=== PATIENT | female | born 1985 | race Caucasian/White ===

== ENCOUNTER 2024-02-04 07:05 | Emergency (ER) | payer SELFPAY ==
[2024-02-04 07:10] VITALS: BP 131/85; PULSE 81; RESP 16; TEMP 36.2; O2SAT 98; BMI 26.5
--- NOTE | 2024-02-04 07:28 | ED_ITS ---
HPI - Skin/Abscess/Foreign Bdy General Chief complaint: Skin/Abscess/Foreign Body Stated complaint: rash Time Seen by Provider: 02/04/24 07:25 Source: patient Mode of arrival: ambulatory Limitations: no limitations History of Present Illness HPI narrative: Patient is a 39-year-old female who presents emergency department for evaluation of a rash. She states she has been experiencing a pruritic vesicular rash to her bilateral forearms over the past month that has been progressing. She has not put on any creams or tried any [id number]-noo-evabuaz medications. She is concerned that pin worms are coming out of her hair follicles resulting in this rash. She does admit to smoking meth, she states that she recently moved here from [place] 3 days ago, and reports that she stopped using meth 1 week ago. She came here to live with a family member and wants to ?get clean?. She denies any fevers, chills, additional skin rashes or lesions, nausea, vomiting, abdominal pain, diarrhea, constipation, no anal pruritus Related Data Previous Rx's ?Medication ?Instructions ?Recorded prednisone 10 mg tablet 10 mg PO DIRECTED #31 tabs 02/04/24 hydroxyzine HCl 25 mg tablet 25 mg PO TID PRN nausea and 02/05/24 vomiting, anxiety #20 tabs Allergies Allergy/AdvReac Type Severity Reaction Status Date / Time prednisone AdvReac Agitated Verified 02/04/24 09:54 Review of Systems 2 Review of Systems: Yes all other systems are reviewed and are negative [facility] Past Medical History Attestation statement: The following information was validated with the patient. Source: old records reviewed Social History Social History Advance Directives: No Advance Directives Information Provided: No Do you have a plan to hurt others: No Plan Physical Exam 2 Vital Signs: Vital Signs: Last Vital Signs Temp 98.7 F 02/05/24 12:30 Pulse 87 02/05/24 12:30 Resp 16 02/05/24 12:30 BP 104/61 02/05/24 12:30 Pulse Ox 98 02/05/24 12:30 O2 Del Method Room Air 02/05/24 12:30 BMI result Body Mass Index 26.5 Appearance: Alert.?Oriented to person, place and time. No acute distress.?Normal affect. Neck: Normal inspection.? Neck supple.?? CVS: Heart sounds normal. Normal heart rate and rhythm.? Pulses normal.?? Respiratory: No respiratory distress.? Lung sounds clear to auscultation bilaterally?? Abdomen: Soft and non-tender. Normoactive bowel sounds. Skin: Skin warm and dry.? Normal skin color.? Extremities: No lower extremity edema.? Neuro: Moves all extremities spontaneously. Sensation intact bilaterally. CN II- XII intact. No focal neuro deficits. Ambulates with normal steady gait. Course Reevaluation(s) Reevaluation #1: Nursing staff presented to bedside to provide patient was discharge instructions. At this time she is endorsing suicidal ideations, not offering specific plan. She states ?I just want to ?. Will obtain serum labs for medical clearance, toxicology testing, and refer to care team Time: 08:22 Medications Administered Discontinued Medications Generic Name Dose Route Start Last Admin Trade Name Freq PRN Reason Stop Dose Admin Hydroxyzine HCl 50 mg 02/04/24 09:12 02/04/24 09:30 Hydroxyzine Hcl 50 Mg Tablet PO 02/04/24 09:13 50 mg ONCE ONE Administration Hydroxyzine HCl 50 mg 02/04/24 17:53 02/04/24 17:59 Hydroxyzine Hcl 50 Mg Tablet PO 02/04/24 17:54 50 mg ONCE ONE Administration Hydroxyzine HCl 50 mg 02/05/24 03:54 02/05/24 03:57 Hydroxyzine Hcl 50 Mg Tablet PO 02/05/24 03:55 50 mg ONCE ONE Administration Hydroxyzine HCl 50 mg 02/05/24 09:53 02/05/24 10:44 Hydroxyzine Hcl 50 Mg Tablet PO 50 mg QID PRN Administration Agitation, anxiety, pruritus Lorazepam 2 mg 02/04/24 18:02 02/04/24 18:05 Lorazepam 1 Mg Tablet PO 02/04/24 18:03 2 mg ONCE ONE Administration Lorazepam 1 mg 02/05/24 09:53 02/05/24 10:44 Lorazepam 1 Mg Tablet PO 1 mg Q6H PRN Administration Agitation, anxiety Prednisone 40 mg 02/04/24 09:00 02/05/24 09:38 Prednisone 10 Mg Tablet PO 02/16/24 08:59 40 mg DAILY DALE Administration Taper Prednisone 40 mg 02/04/24 17:53 02/04/24 18:06 Prednisone 20 Mg Tablet PO 02/04/24 17:54 40 mg ONCE ONE Administration Medical Decision Making Medical Decision Making [facility] Narrative: Patient is a 39-year-old female past medical history of methamphetamine abuse presenting to emergency department for evaluation of a pruritic vesicular rash to her bilateral forearms as per physical exam portion of this note. 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 Does not appear consistent with folliculitis, low suspicion for a staph infection, no erosions, no recent medications, does not appear consistent with SJS, TENS, no mucosal involvement. Start on prednisone taper and discussed strict hygiene precautions Differential Diagnosis Differential Diagnoses: The differential diagnosis associated with the presentation includes (See narrative above) Admission/Observation Consideration of admission/observation: Escalation of care including admission/observation considered Patient is being observed in the Emergency Department for depression and anxiety. Observation time was started at 08:27 on 01/27/2024.?The patient is currently stable and non-toxic appearing. Observation is being initiated in the Emergency Department to allow time to help differentiate if the patient's depression and anxiety is due to Substance Induced Mood Disorder and Anxiety versus Major Depressive Disorder, Bipolar Keyla, Bipolar Depression, and Schizophrenia. The patient will receive frequent psychiatric assessments from the provider as well as from nursing staff. The patient will also be monitored for the need of PRN agitation medications such as Haldol, Ativan, and Benadryl. 02/05/2024 Capo Monterroso'dimitry continue physician observation 09:51 Patient has been in the emergency department for 26 hours. Patient has been seen by the care team. There were no reported incidents on the patient by the overnight staff. The patient is complaining pruritus secondary to her rash. The patient was taking present and there was a concerned that she may become more agitated secondary to this patient. I did order Ativan 1 mg Q 6 hours as needed for agitation and anxiety. I also ordered hydroxyzine 50 mg orally every 6 hours as needed for pruritus. Patient will remain in the emergency department Behavioral Health Unit until disposition can be determined or until patient's symptoms improve over time. 12:17 End physician observation Patient was seen by the care team in the patient is denying suicidal or homicidal ideation. Patient has urine tox screen was positive for amphetamines and for THC and the care team felt that the patient's symptoms were consistent with drug-induced psychosis. The patient came to this area on a bus from [place]. The patient's aunt was contacted by the care team and the patient can stay with the aunt. The aunt is also willing to pay for the patient's medications. Therefore the patient will be discharged. Patient was prescribed a course of prednisone for contact dermatitis. I also prescribed hydroxyzine 25 mg, 1 pill 3 times a day as needed for pruritus and itchiness. Observation care revealed the the patient does not meet medical necessity for hospitalization. Exam at time of disposition revealed the patient was awake, alert , oriented to person place, was not in any distress. ? Final disposition discussed with the patient by the care team and the patient did verbalized understanding and agreement. Patient started observation time on 02/04/2024 at 08:26 hours open speech Patient completed observation care on 02/05/2024 at 12:20 hours Total time spent in observation care was 27 hours and 54 minute Consult Healthcare Provider Management of the patient was discussed with: Behavioral Health Provider Lab Data MDM Lab Attestation statement: I reviewed the patient's lab results. CBC is without leukocytosis anemia or thrombocytopenia. No electrolyte derangement. No RUBINA. LFTs unremarkable. Urinalysis without evidence of infection. Toxicology positive for amphetamine and marijuana. 02/04/24 10:18 02/04/24 10:18 Labs: Lab Results 02/04/24 02/04/24 Range/Units 10:18 11:46 WBC 8.3 (4.8-10.8) X10*3/uL RBC 4.48 (4.20-5.50) X10*6/uL Hgb 14.6 (12.0-16.0) g/dl Hct 41.3 (37.0-47.0) % MCV 92.2 (80.0-98.0) fL MCH 32.6 (27.0-33.0) pg MCHC 35.4 H (31.0-35.0) g/dl RDW 12.2 (11.0-16.0) % Plt Count 302 (160-400) X10*3/uL MPV 9.8 (9.4-12.3) fL Immature Gran % (Auto) 0.4 (0.0-0.4) % Neut % (Auto) 68.0 (45-73) % Lymph % (Auto) 19.7 L (20-40) % [place] % (Auto) 4.8 (2-11) % Eos % (Auto) 6.4 H (0-4) % Baso % (Auto) 0.7 (0-2) % Lymph # (Auto) 1.6 (1.2-4.9) X10*3/uL [place] # (Auto) 0.4 (0.1-1.2) X10*3/uL Eos # (Auto) 0.5 H (0.0-0.4) X10*3/uL Baso # (Auto) 0.1 (0.0-0.2) X10*3/uL Abs Immat Gran (auto) 0.03 (0.00-0.03) X10*3/uL Absolute Neuts (auto) 5.7 (2.0-8.3) x10*3/uL Absolute Nucleated RBC 0.000 (0.0-0.012) X10*3/uL Nucleated RBC % (auto) 0.0 (0.0-0.2) /100WBC Sodium 140 (135-145) mmol/L Potassium 3.9 (3.3-5.1) mmol/L Chloride 110 H (96-108) mmol/L Carbon Dioxide 23 (22-29) mmol/L Anion Gap 11 L (12-20) BUN 11 (9-16) mg/dL Creatinine 0.74 (0.5-1.4) mg/dL Estim Creat Clear Calc 90.8 Estimated GFR > 60 Random Glucose 98 (60-115) mg/dL Calcium 9.1 (8.4-10.2) mg/dL Total Bilirubin 0.6 (0.0-1.0) mg/dL AST 14 (5-31) U/L ALT 10 (0-31) U/L Alkaline Phosphatase 69 (39-117) U/L Total Protein 6.0 L (6.5-8.0) g/dL Albumin 3.9 (3.5-5.0) g/dL Urine Color Yellow Urine Appearance Clear Urine pH 6.5 (5.0-9.0) Ur Specific [place] 1.020 (1.005-1.025) Urine Protein Negative (Neg-Trace) mg/dL Urine Glucose (UA) Negative (Negative) mg/dL Urine Ketones Trace (Negative) mg/dL Urine Blood Negative (Negative) Urine Nitrite Negative (Negative) Ur Leukocyte Esterase Negative (Negative) Urine Opiates Screen Not Detected (Not Detect) Ur Buprenorphine Scrn Not Detected (Not Detect) ng/mL Ur Oxycodone Screen Not Detected (Not Detect) ng/mL Urine Methadone Screen Not Detected (Not Detect) ng/mL Urine Fentanyl Screen Not Detected (Not Detect) Ur Barbiturates Screen Not Detected (Not Detect) Ur Phencyclidine Scrn Not Detected (Not Detect) Ur Amphetamines Screen POSITIVE H (Not Detect) U Benzodiazepines Scrn Not Detected (Not Detect) Urine Cocaine Screen Not Detected (Not Detect) U Marijuana (THC) Screen POSITIVE H (Not Detect) Ethyl Alcohol < 10 mg/dL Prescription Management I considered prescription management with: Other (See narrative above) Social Determinants Patient?s care significantly limited by Social Determinants of Health including: Other Social Determinant of Health (Methamphetamine abuse) Discharge Plan Discharge Clinical Impression: Contact dermatitis, Suicidal ideation Patient Disposition: Home, Self-Care Instructions: Contact Dermatitis (ED) Additional Instructions: You have been provided with a prescription for prednisone to help alleviate the rash that you were experiencing in the very intense itching associated with it. Please try to refrain from scratching at this as it may worsen your symptoms, although I know that this is very difficult. Be sure to take your medication with food in the morning to prevent stomach upset. Prescriptions: New prednisone 10 mg tablet 10 mg PO DIRECTED Qty: 31 0RF Rx Instructions: see taper instructions hydroxyzine HCl 25 mg tablet 25 mg PO TID PRN (Reason: nausea and vomiting, anxiety) Qty: 20 0RF Referrals: Physician,None [Primary Care Provider] - Interventions: ED Discharge Assessment Last Done: 02/05/24 12:30 Discharge Date/Time: 02/05/24 12:55 Print Language: Finnish
--- NOTE | 2024-02-04 08:23 | PC.NURSE ---
Attempted to d/c patient- Pt stated I don't believe what you guys are saying about my rash This rash is making suicidal. I just want to
[2024-02-04] MEDS: hydrOXYzine HCL 50 MG TABLET PO ×2 (09:30→17:59)
[2024-02-04 09:59] VITALS: BP 131/85; PULSE 81; RESP 16; TEMP 36.2; O2SAT 98
[2024-02-04 10:25] LABS: MANUAL DIFF FLAG NO
[2024-02-04 10:43] LABS: Alanine Aminotransferase 10 U/L (0-31); Albumin Level 3.9 g/dL (3.5-5.0); Alkaline Phosphatase 69 U/L (39-117); Anion Gap 11 (12-20); Aspartate Amino Transferase 14 U/L (5-31); Bilirubin Total 0.6 mg/dL (0.0-1.0); Blood Urea Nitrogen 11 mg/dL (9-16); Calcium 9.1 mg/dL (8.4-10.2); Carbon Dioxide 23 mmol/L (22-29); Chloride 110 mmol/L (96-108); Creatinine Clr Calc Pharmacy 90.8; Estimated Glomerular Filt Rate > 60; Ethanol < 10 mg/dL; Glucose Random 98 mg/dL (60-115); Potassium 3.9 mmol/L (3.3-5.1); Sodium 140 mmol/L (135-145)
[2024-02-04 10:47] LABS: Basophils Absolute Auto 0.1 X10*3/uL (0.0-0.2); Basophils Percent Auto 0.7 % (0-2); Eosinophils Absolute Auto 0.5 X10*3/uL (0.0-0.4); Eosinophils Percent Auto 6.4 % (0-4); Hematocrit 41.3 % (37.0-47.0); Hemoglobin 14.6 g/dl (12.0-16.0); Imm Gran Abs Auto 0.03 X10*3/uL (0.00-0.03); Imm Gran Pct Auto 0.4 % (0.0-0.4); Lymphocytes Absolute Auto 1.6 X10*3/uL (1.2-4.9); Lymphocytes Percent Auto 19.7 % (20-40); Mean Corpuscular HGB Conc 35.4 g/dl (31.0-35.0); Mean Corpuscular Hemoglobin 32.6 pg (27.0-33.0); Mean Corpuscular Volume 92.2 fL (80.0-98.0); Mean Platelet Volume 9.8 fL (9.4-12.3); Monocytes Absolute Auto 0.4 X10*3/uL (0.1-1.2); Monocytes Percent Auto 4.8 % (2-11); Neutrophils Absolute Auto 5.7 x10*3/uL (2.0-8.3); Platelet Count 302 X10*3/uL (160-400); Red Blood Count 4.48 X10*6/uL (4.20-5.50); Red Cell Distribution Width 12.2 % (11.0-16.0); White Blood Count 8.3 X10*3/uL (4.8-10.8)
[2024-02-04 11:54] LABS: Appearance Urine Clear; Color Urine Yellow; Glucose Urine UA Negative (Negative); Leukocyte Esterase Urine Negative (Negative); Nitrite Urine Negative (Negative); PH 6.5 (5.0-9.0); Urine Blood Negative (Negative); Urine Ketones Trace mg/dL (Negative); Urine Protein Negative (Neg-Trace)
[2024-02-04 12:06] LABS: Amphetamine Screen Urine POSITIVE (Not Detect); Barbiturates, Urine Not Detected (Not Detect); Benzodiazepines Screen Urine Not Detected (Not Detect); Buprenorphine Scr Not Detected (Not Detect); Cannabinoid Screen Urine POSITIVE (Not Detect); Cocaine Screen Urine Not Detected (Not Detect); Fentanyl, urine Not Detected (Not Detect); Methadone Screen, Urine Not Detected (Not Detect); Opiate Screen Urine Not Detected (Not Detect); Oxycodone Screen Urine Not Detected (Not Detect); Phencyclidine Screen Urine Not Detected (Not Detect)
[2024-02-04] MEDS: LORazepam 1 MG TABLET 2 MG PO (18:05)
[2024-02-04] MEDS: predniSONE 20 MG TABLET 40 MG PO (18:06)
[2024-02-04 20:35] VITALS: BP 99/60; PULSE 72; RESP 16; TEMP 37.1; O2SAT 96
--- NOTE | 2024-02-05 01:54 | PC.NURSE ---
pt to the nurse's desk, requesting cracker, and PB. Pt requested something for anxiety and itching, will check with provider
[2024-02-05] MEDS: hydrOXYzine HCL 50 MG TABLET PO ×2 (03:57→10:44)
--- NOTE | 2024-02-05 03:59 | PC.NURSE ---
pt requested something for itching, talked with the provider, and got her something. Pt medicated as requested
[2024-02-05 06:00] VITALS: BP 104/61; PULSE 57; RESP 16; TEMP 37.1; O2SAT 98
--- NOTE | 2024-02-05 06:59 | PC.NURSE ---
Assumed care of patient at 0645. At this time the patient is observed resting quietly in bed. No signs of distress observed. Breathing is even and unlabored.
[2024-02-05] MEDS: predniSONE 10 MG TABLET 40 MG PO (09:38)
[2024-02-05] MEDS: LORazepam 1 MG TABLET PO (10:44)
[2024-02-05 12:30] VITALS: BP 104/61; PULSE 87; RESP 16; TEMP 37.1; O2SAT 98
== END 2024-02-05 12:55 | disposition home or self-care (01) ==
PROVIDERS: Nurse Practitioner Family; Emergency Provider Emergency Medicine Emergency Medical Services
DX: F15.10 Other stimulant abuse, uncomplicated (principal); R45.851 Suicidal ideations; L30.9 Dermatitis, unspecified; Z79.899 Other long term (current) drug therapy
CPT/HCPCS: 36415; 80053; 80307; 81003; 85025; 99284; S9485

== ENCOUNTER 2024-08-16 13:29 | Inpatient (IN) | payer OTHER, SELFPAY ==
--- NOTE | 2024-08-16 | ECG_ITS ---
Test Reason : QTC CHECK Blood Pressure : */* mmHG Vent. Rate : 55 BPM Atrial Rate : 55 BPM P-R Int : 146 ms QRS Dur : 72 ms QT Int : 516 ms P-R-T Axes : 42 52 28 degrees QTcB Int : 493 ms Sinus bradycardia Nonspecific T wave abnormality Prolonged QT Abnormal ECG No previous ECGs available Referred By: Chris Mackenzie Electronically Signed By: Bj Walker
[2024-08-16 13:34] VITALS: BP 126/70; PULSE 78; RESP 18; TEMP 36.7; O2SAT 100; BMI 32.0
--- NOTE | 2024-08-16 13:34 | ED.PSYCH ---
HPI - Psych General Chief Complaint: Psychiatric Symptoms Stated Complaint: SI Time Seen by Provider: 08/16/24 13:58 Source: patient Mode of arrival: ambulatory Limitations: no limitations History of Present Illness HPI Narrative: this is a 39-year-old female with a past medical history meth use who presents for evaluation of suicidal intention with plan to overdose. 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 She states that she feels like this allowed the government to use her to give her parasites. She states that she also received a pneumonia vaccine, which she states is contributing to her parasitic infection. She states that the airplanes are also spraying things . She states that she has not been using meth recently. She states that she previously would snorted or ingested. She states no alcohol use. She states that she did recently relapsed and took some Vicodin and Adderall. She states that she is planning on overdosing if she can figure out what is going on with her internal organs and parasite infection. She states no SI. She states no AH/VH. She states no fevers. She states no recent head trauma. She states no chest pain or dyspnea. She states no abdominal pain or back pain. She states no symptoms. She adds her abdomen feeling bloated. She states no abdominal pain, nausea, vomiting or changes to bowel habits. Related Data Home Medications ?Medication ?Instructions ?Recorded ?Confirmed clonidine HCl 0.1 mg tablet 0.1 mg PO TID PRN anxiety 08/16/24 08/16/24 fluoxetine 20 mg tablet 20 mg PO QAM 08/16/24 08/16/24 Allergies Allergy/AdvReac Type Severity Reaction Status Date / Time metoclopramide [From Reglan] AdvReac Agitated Verified 08/16/24 13:37 prednisone AdvReac Agitated Verified 02/04/24 09:54 Review of Systems Review of Systems: ROS as per HPI PMFSH Social History Social History Smoked in Last 30 Days: Yes Use of substances other than those prescribed or required for medical reasons: No Advance Directives: No Advance Directives Information Provided: No Patient : No Physical Exam Vital Signs: Vital Signs: Last Vital Signs Temp 97.9 F 08/16/24 22:25 Pulse 60 08/16/24 22:25 Resp 16 08/16/24 22:25 BP 102/62 08/16/24 22:25 Pulse Ox 98 08/16/24 22:25 O2 Del Method Room Air 08/16/24 22:25 BMI result Body Mass Index 32.0 Gen: NAD, AOx3 HEENT: NCAT, EOMI, normal conjunctiva CV: RRR Pulm: CTAB, no increased work of breathing GI: Soft, NTND, no rebound, guarding or rigidity Neuro: Grossly non focal Course Course Course Narrative: This is a Rapid Medical Exam performed in triage by Tri Zabala PA-C. Full HPI, ROS and PE to be performed by primary ED provider. 39 year old female presenting to the ED c/o SI x 4 days. Reports plan to OD on drugs. Reports has had plan before, but has not never attempted and has not used drugs in 6m. No thoughts of harming anyone else. Denies drug/alc use today. PE: speaking in clear sentences, cooperative Plan: labs, tox screen, CARE team consult 02:18, 08/17/2024,David Holland, DO There have been no acute issues during my shift. Patient will remain in physician observation until disposition. Home medications have been ordered. Medications Administered Generic Name Dose Route Start Last Admin Trade Name Freq PRN Reason Stop Dose Admin Fluoxetine HCl 20 mg 08/16/24 16:30 08/16/24 17:50 Fluoxetine Hcl 20 Mg Capsule PO Not Given DAILY [facility] Medical Decision Making Medical Decision Making [facility] Narrative: Differential diagnosis includes, but is not limited toDecompensated psychiatric illness, substance use. Patient is afebrile and hemodynamically stable on room air. Exam is benign and reassuring. She exhibits no signs or symptoms consistent or suggestive of any acute toxidrome such as anticholinergic, cholinergic, sympathomimetic or sedative/hypnotic. CBC, metabolic panel, urinalysis are benign and reassuring. Salicylate, acetaminophen and ethanol levels are undetectable. Urine drug screen is positive for amphetamines and marijuana. Patient placed on S12 due to suicidal ideation with plan to overdose. Care is transitioned to oncoming physician, Dr. Holland, with disposition pending CARE team evaluation. Admission/Observation Consideration of admission/observation: Escalation of care including admission/observation considered Lab Data 08/16/24 15:18 08/16/24 15:18 Labs: Lab Results 08/16/24 08/16/24 Range/Units 14:05 15:18 WBC 8.9 (4.8-10.8) X10*3/uL RBC 3.93 L (4.20-5.50) X10*6/uL Hgb 12.7 (12.0-16.0) g/dl Hct 36.6 L (37.0-47.0) % MCV 93.1 (80.0-98.0) fL MCH 32.3 (27.0-33.0) pg MCHC 34.7 (31.0-35.0) g/dl RDW 12.3 (11.0-16.0) % Plt Count 309 (160-400) X10*3/uL MPV 9.9 (9.4-12.3) fL Immature Gran % (Auto) 0.3 (0.0-0.4) % Neut % (Auto) 64.9 (45-73) % Lymph % (Auto) 26.7 (20-40) % [place] % (Auto) 4.6 (2-11) % Eos % (Auto) 2.4 (0-4) % Baso % (Auto) 1.1 (0-2) % Lymph # (Auto) 2.4 (1.2-4.9) X10*3/uL [place] # (Auto) 0.4 (0.1-1.2) X10*3/uL Eos # (Auto) 0.2 (0.0-0.4) X10*3/uL Baso # (Auto) 0.1 (0.0-0.2) X10*3/uL Abs Immat Gran (auto) 0.03 (0.00-0.03) X10*3/uL Absolute Neuts (auto) 5.8 (2.0-8.3) x10*3/uL Absolute Nucleated RBC 0.000 (0.0-0.012) X10*3/uL Nucleated RBC % (auto) 0.0 (0.0-0.2) /100WBC Sodium 141 (135-145) mmol/L Potassium 4.2 (3.3-5.1) mmol/L Chloride 111 H (96-108) mmol/L Carbon Dioxide 25 (22-29) mmol/L Anion Gap 9 L (12-20) BUN 13 (9-16) mg/dL Creatinine 0.65 (0.5-1.4) mg/dL Estim Creat Clear Calc 113.3 Estimated GFR > 60 Random Glucose 84 (60-115) mg/dL Calcium 9.3 (8.4-10.2) mg/dL Magnesium 1.9 (1.6-2.6) mg/dL Total Bilirubin 0.4 (0.0-1.0) mg/dL Direct Bilirubin 0.2 (0.0-0.5) mg/dL AST 21 (5-31) U/L ALT 11 (0-31) U/L Alkaline Phosphatase 55 (39-117) U/L Total Protein 6.2 L (6.5-8.0) g/dL Albumin 4.1 (3.5-5.0) g/dL Urine Color Dark Yellow Urine Appearance Cloudy Urine pH 5.5 (5.0-9.0) Ur Specific [place] >= 1.030 H (1.005-1.025) Urine Protein Trace (Neg-Trace) mg/dL Urine Glucose (UA) Negative (Negative) mg/dL Urine Ketones Trace (Negative) mg/dL Urine Blood Small (1+) H (Negative) Urine Nitrite Negative (Negative) Ur Leukocyte Esterase Small (1+) H (Negative) Urine RBC 0-2 (0-2) /HPF Urine WBC 6-10 (0-5) /HPF Ur Squamous Epith Cells 11-20 (0-2) /HPF Urine Bacteria 3+ (None Seen) Hyaline Casts 0-2 (0-2) /LPF Urine Test NEGATIVE (NEGATIVE) Salicylates < 5.0 L (15-30) mg/dL Urine Opiates Screen Not Detected (Not Detect) Ur Buprenorphine Scrn Not Detected (Not Detect) ng/mL Ur Oxycodone Screen Not Detected (Not Detect) ng/mL Urine Methadone Screen Not Detected (Not Detect) ng/mL Urine Fentanyl Screen Not Detected (Not Detect) Acetaminophen < 3 (<30) mcg/mL Ur Barbiturates Screen Not Detected (Not Detect) Ur Phencyclidine Scrn Not Detected (Not Detect) Ur Amphetamines Screen POSITIVE H (Not Detect) U Benzodiazepines Scrn Not Detected (Not Detect) Urine Cocaine Screen Not Detected (Not Detect) U Marijuana (THC) Screen POSITIVE H (Not Detect) Ethyl Alcohol < 10 mg/dL Discharge Plan Discharge Clinical Impression: Suicidal ideation Patient Disposition: Still a Patient Prescriptions: No Action clonidine HCl 0.1 mg tablet 0.1 mg PO TID PRN (Reason: anxiety) fluoxetine 20 mg tablet 20 mg PO QAM Interventions: [place]-Suicide Risk Severity Scale Last Done: 08/16/24 14:10 Print Language: Polish
[2024-08-16 14:18] LABS: Appearance Urine Cloudy; Color Urine Dark Yellow; Glucose Urine UA Negative (Negative); Leukocyte Esterase Urine Small (1+) (Negative); Nitrite Urine Negative (Negative); PH 5.5 (5.0-9.0); Specific Gravity - Urine >= 1.030 (1.005-1.025); UMIC TRIGGER UACC YES; Urine Blood Small (1+) (Negative); Urine Ketones Trace mg/dL (Negative); Urine Protein Trace mg/dL (Neg-Trace)
[2024-08-16 14:19] LABS: UPreg QC Valid YES; Urine Pregnancy NEGATIVE (NEGATIVE)
[2024-08-16 14:27] LABS: Bacteria Urine 3+ (None Seen); Hyaline Casts Urine 0-2 /LPF (0-2); RBC Urine 0-2 /HPF (0-2); UACC Culture Trigger YES
[2024-08-16 14:30] LABS: Amphetamine Screen Urine POSITIVE (Not Detect); Barbiturates, Urine Not Detected (Not Detect); Benzodiazepines Screen Urine Not Detected (Not Detect); Buprenorphine Scr Not Detected (Not Detect); Cannabinoid Screen Urine POSITIVE (Not Detect); Cocaine Screen Urine Not Detected (Not Detect); Fentanyl, urine Not Detected (Not Detect); Methadone Screen, Urine Not Detected (Not Detect); Opiate Screen Urine Not Detected (Not Detect); Oxycodone Screen Urine Not Detected (Not Detect); Phencyclidine Screen Urine Not Detected (Not Detect)
--- NOTE | 2024-08-16 14:47 | PC.NURSE ---
Pt arrives to ED BH pod from waiting area. Pt reports to this RN that she believes the government has injected her with a parasite and is poisoning the air to kill her and she would rather be . Pt reports a recent increase in her PTSD and bad decisions. She states 2 days ago she took and old Vicodin, an Adderall from a friend, and her mothers anxiety medication. She denies any pain at this time but reports feeling bloated from the parasite. Pt is A&Ox3, calm and cooperative. ED provider at bedside.
[2024-08-16 15:22] LABS: MANUAL DIFF FLAG NO
[2024-08-16 15:24] LABS: Basophils Absolute Auto 0.1 X10*3/uL (0.0-0.2); Basophils Percent Auto 1.1 % (0-2); Eosinophils Absolute Auto 0.2 X10*3/uL (0.0-0.4); Eosinophils Percent Auto 2.4 % (0-4); Hematocrit 36.6 % (37.0-47.0); Hemoglobin 12.7 g/dl (12.0-16.0); Imm Gran Abs Auto 0.03 X10*3/uL (0.00-0.03); Imm Gran Pct Auto 0.3 % (0.0-0.4); Lymphocytes Absolute Auto 2.4 X10*3/uL (1.2-4.9); Lymphocytes Percent Auto 26.7 % (20-40); Mean Corpuscular HGB Conc 34.7 g/dl (31.0-35.0); Mean Corpuscular Hemoglobin 32.3 pg (27.0-33.0); Mean Corpuscular Volume 93.1 fL (80.0-98.0); Mean Platelet Volume 9.9 fL (9.4-12.3); Monocytes Absolute Auto 0.4 X10*3/uL (0.1-1.2); Monocytes Percent Auto 4.6 % (2-11); Neutrophils Absolute Auto 5.8 x10*3/uL (2.0-8.3); Neutrophils Percent Auto 64.9 % (45-73); Platelet Count 309 X10*3/uL (160-400); Red Blood Count 3.93 X10*6/uL (4.20-5.50); Red Cell Distribution Width 12.3 % (11.0-16.0); White Blood Count 8.9 X10*3/uL (4.8-10.8)
[2024-08-16 15:37] LABS: Ethanol < 10 mg/dL
[2024-08-16 15:38] LABS: Alanine Aminotransferase 11 U/L (0-31); Albumin Level 4.1 g/dL (3.5-5.0); Alkaline Phosphatase 55 U/L (39-117); Anion Gap 9 (12-20); Aspartate Amino Transferase 21 U/L (5-31); Bilirubin Direct 0.2 mg/dL (0.0-0.5); Bilirubin Total 0.4 mg/dL (0.0-1.0); Blood Urea Nitrogen 13 mg/dL (9-16); Calcium 9.3 mg/dL (8.4-10.2); Carbon Dioxide 25 mmol/L (22-29); Chloride 111 mmol/L (96-108); Creatinine Clr Calc Pharmacy 113.3; Estimated Glomerular Filt Rate > 60; Glucose Random 84 mg/dL (60-115); Magnesium 1.9 mg/dL (1.6-2.6); Potassium 4.2 mmol/L (3.3-5.1); Sodium 141 mmol/L (135-145); Total Protein 6.2 g/dL (6.5-8.0)
[2024-08-16 15:41] LABS: Acetaminophen LAB < 3 mcg/mL (<30); Salicylate < 5.0 mg/dL (15-30)
[2024-08-16 22:25] VITALS: BP 102/62; PULSE 60; RESP 16; TEMP 36.6; O2SAT 98
[2024-08-17] VITALS (7 sets, daily range): BP systolic 100–126; BP diastolic 54–70; PULSE 50–58; RESP 16–18; TEMP 36.6–36.8; O2SAT 97–99; BMI 31.3
[2024-08-17] MEDS: cloNIDine HCL 0.1 MG TABLET PO ×4 (03:15→20:54)
--- NOTE | 2024-08-17 03:17 | PC.NURSE ---
pt ambulated to bathroom independently, steadily. upon return to room, pt stopped at nurse station and asked calmly for anxiety medication. gave clonidine. pt returned to room, closed door, and is now lying in bed
[2024-08-17] MEDS: FLUoxetine HCl 20 MG CAPSULE PO (09:24)
[2024-08-17] MEDS: LORazepam 1 MG TABLET PO (09:54)
--- NOTE | 2024-08-17 10:25 | PC.NURSE ---
PT UP THIS MORNING, VERY TEARFUL AND ANXIOUS WHY AM I HERE, YOU GUYS AREN'T DOING ANYTHING FOR ME? I SAY I HAVE PARASITES AND NO ONE CARES, I HAVEN'T SEEN A DOCTOR . GIVEN PRN CLONIDINE SLIGHTLY BEFORE SCHEDULED FOR ANXIETY. PT RETURNED EXPRESSING NO RELIEF WITH HER SYMPTOMS, REMAINED PANICKED, FEELS COUPED UP, TEARFUL, DIFFICULT TO REDIRECT AND REASSURE. PO ATIVAN ORDERED, WCTM.
[2024-08-17 12:45] LABS: Alanine Aminotransferase 12 U/L (0-31); Albumin Level 4.4 g/dL (3.5-5.0); Alkaline Phosphatase 59 U/L (39-117); Anion Gap 11 (12-20); Aspartate Amino Transferase 20 U/L (5-31); Bilirubin Total 0.8 mg/dL (0.0-1.0); Blood Urea Nitrogen 13 mg/dL (9-16); Calcium 9.3 mg/dL (8.4-10.2); Carbon Dioxide 23 mmol/L (22-29); Chloride 111 mmol/L (96-108); Creatinine Clr Calc Pharmacy 109.9; Estimated Glomerular Filt Rate > 60; Glucose Random 96 mg/dL (60-115); Sodium 141 mmol/L (135-145); Total Protein 6.6 g/dL (6.5-8.0)
[2024-08-17] MEDS: hydrOXYzine HCL 25 MG TABLET PO ×2 (13:34→20:55)
--- NOTE | 2024-08-17 14:29 | HO.PSYADMNOT ---
HPI Date of Service: 08/17/24 Chief Complaint: Crisis Sources of Information: patient interviewed, chart reviewed and crisis/core team assessment reviewed HPI Subjective Notes: Francis Warning and Conditional Voluntary Narrative: Patient is a 39-year-old female with history of unspecified psychosis, PTSD, TBI and stimulant use disorder, who was brought in to ER by her [facility] staff due to suicidal ideation with a plan to overdose secondary to paranoia. Per crisis report, patient reported she recently relapsed on Vicodin and Adderall, after being sober for 6 months because she was trying to self medicate. Patient stated, I am a conspiracy theories, the government is poisoning are air which is why I struggle to breathe and I have these parasites. 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 Patient presented tangential, paranoid and disorganized at times during assessment. Patient reported in 2007 she sustained a TBI and afterwards began to have these thoughts of being poisoned and infected with parasites from the government. Patient denies HI/AH. History of methamphetamine use. Utox positive for amphetamines and marijuana. During admission assessment, patient presents alert and oriented x3. cooperative, tearful. Rapid and pressured speech. Paranoid delusions. Patient reports she does not believe she is on the right psychiatric medications. She believes that there are parasites that are coming out of her skin and attacking her organs . Patient stated, I have been in and out of ERs. I know I'm not crazy. I believe I'm being poisoned by the government. It's population control because of my income status. If I don't get treated for it in the next 2 years I will be . Patient reports she has a dermatology appointment in March of this year. She reports history of methamphetamine use but states that she has been sober for 6 months. However, she reports using Adderall and Vicodin prior to coming to the ER. Patient denies SI/HI/AH. She reports wanting assistance with her psychiatric medications. Past Psychiatric History: History of multiple inpatient psychiatric admissions. Last admission being in [place] in 12/2003. Patient attends [facility] stimulant treatment and recovery team program 4 days a week. Prescriber and therapist through [facility]. Denies history of SA/SIB. Medical Evaluation Reviewed: Yes [facility] Family History: Mother: Depression, PTSD Cousin: Bipolar Social History: Lives with grandmother and aunt. Single. Four children who are not in her custody. Some college. Disability. Substance History: U tox positive for amphetamines and marijuana. Trauma History: Yes Diagnostics Vital Signs (24Hr): Vital Signs - 24 hr 08/16/24 22:25 08/17/24 04:15 08/17/24 06:02 Temperature 97.9 F 97.8 F Pulse Rate 60 58 Respiratory Rate 16 16 18 Blood Pressure 102/62 126/68 Pulse Oximetry 98 98 Oxygen Delivery Method Room Air Room Air 08/17/24 09:25 08/17/24 12:00 Temperature 98.2 F Pulse Rate 53 Respiratory Rate 17 Blood Pressure 126/68 109/70 Pulse Oximetry 99 Oxygen Delivery Method Room Air BMI result Body Mass Index 31.3 Labs 08/16/24 15:18 08/17/24 12:24 Labs: Laboratory Results - last 48 hr 08/16/24 08/16/24 08/17/24 14:05 15:18 12:24 WBC 8.9 RBC 3.93 L Hgb 12.7 Hct 36.6 L MCV 93.1 MCH 32.3 MCHC 34.7 RDW 12.3 Plt Count 309 MPV 9.9 Immature Gran % (Auto) 0.3 Neut % (Auto) 64.9 Lymph % (Auto) 26.7 Phillips % (Auto) 4.6 Eos % (Auto) 2.4 Baso % (Auto) 1.1 Lymph # (Auto) 2.4 Phillips # (Auto) 0.4 Eos # (Auto) 0.2 Baso # (Auto) 0.1 Abs Immat Gran (auto) 0.03 Absolute Neuts (auto) 5.8 Absolute Nucleated RBC 0.000 Nucleated RBC % (auto) 0.0 Sodium 141 141 Potassium 4.2 4.0 Chloride 111 H 111 H Carbon Dioxide 25 23 Anion Gap 9 L 11 L BUN 13 13 Creatinine 0.65 0.67 Estim Creat Clear Calc 113.3 109.9 Estimated GFR > 60 > 60 Random Glucose 84 96 Calcium 9.3 9.3 Magnesium 1.9 Total Bilirubin 0.4 0.8 Direct Bilirubin 0.2 AST 21 20 ALT 11 12 Alkaline Phosphatase 55 59 Total Protein 6.2 L 6.6 Albumin 4.1 4.4 Urine Color Dark Yellow Urine Appearance Cloudy Urine pH 5.5 Ur Specific [place] >= 1.030 H Urine Protein Trace Urine Glucose (UA) Negative Urine Ketones Trace Urine Blood Small (1+) H Urine Nitrite Negative Ur Leukocyte Esterase Small (1+) H Urine RBC 0-2 Urine WBC 6-10 Ur Squamous Epith Cells 11-20 Urine Bacteria 3+ Hyaline Casts 0-2 Urine Test NEGATIVE Salicylates < 5.0 L Urine Opiates Screen Not Detected Ur Buprenorphine Scrn Not Detected Ur Oxycodone Screen Not Detected Urine Methadone Screen Not Detected Urine Fentanyl Screen Not Detected Acetaminophen < 3 Ur Barbiturates Screen Not Detected Ur Phencyclidine Scrn Not Detected Ur Amphetamines Screen POSITIVE H U Benzodiazepines Scrn Not Detected Urine Cocaine Screen Not Detected U Marijuana (THC) Screen POSITIVE H Ethyl Alcohol < 10 Meds/Allergies Meds Home Medications ?Medication ?Instructions ?Recorded ?Confirmed ?Type clonidine HCl 0.1 mg tablet 0.1 mg PO TID PRN anxiety 08/16/24 08/16/24 History fluoxetine 20 mg tablet 20 mg PO QAM 08/16/24 08/16/24 History Allergies Allergies Allergy/AdvReac Type Severity Reaction Status Date / Time metoclopramide [From Reglan] AdvReac Agitated Verified 08/16/24 13:37 prednisone AdvReac Agitated Verified 02/04/24 09:54 Mental Status Exam Mental Status Exam Patient Appearance: Appropriate Patient Orientation: Person, Place, Time and Situation Level of Consciousness: Awake and Alert Patient Behavior: Cooperative, Anxious, Good Eye Contact and Crying Mood Description: Depressed and Anxious Affect Description: Depressed and Anxious Ability to Follow Directions: Good Speech Pattern: Clear and Rapid Hallucinations: Visual Delusions: Paranoid Ideation Thought Process: Racing Thought Content: positive for Racing Assessment & Plan Assessment & Plan (1) Psychosis: Status: Acute Code(s): F29 - Unspecified psychosis not due to a substance or known physiological condition (2) PTSD (post-traumatic stress disorder): Status: Acute Code(s): F43.10 - Post-traumatic stress disorder, unspecified (3) Stimulant use disorder: Status: Acute Code(s): F15.90 - Other stimulant use, unspecified, uncomplicated (4) TBI (traumatic brain injury): Status: Acute Code(s): S06.9XAA - Unspecified intracranial injury with loss of consciousness status unknown, initial encounter Plan Patient is a 39-year-old female with history of unspecified psychosis, PTSD,TBI and stimulant use disorder, who was brought in to ER by her [facility] staff due to suicidal ideation with a plan to overdose secondary to paranoia. Plan: CV 15 minute safety checks Obtain collateral Start: [place] 300mg PO BID Thorazine 50mg PO bedtime Thorazine 25mg TID PRN Encourage groups Discharge planning Patient educated on: diagnosis and medication risk/benefits Reason for continued inpatient stay Substantial Risk for: med/psych decompensation Statement Statement: I have reviewed the history and physical and performed a pertinent examination on my patient. No changes have occurred unless specified. If the History and Physical was not performed prior to admission, the Hospitalist's service will be consulted for completing the admission physical. Time Spent With Patient Time: Total time managing care of this patient today _60___ minutes.
[2024-08-17] MEDS: Lithium Carbonate ER 300 MG TABLET.ER PO ×2 (15:17→20:55)
--- NOTE | 2024-08-17 15:46 | PC.ADMIT ---
Patient is a 39 year old female that was admitted to the unit at 1145 on a CV from the POD for treatment of Unspecified Psychosis. Patient was brought in to [facility] with reports of a recent relapse of Vicodin and Adderall after 6 months of being sober as an attempt to self medicate , along with ongoing delusions and paranoia r/t the government poisoning the air and infecting her with parasites. Upon admission assessment, pt is A&Ox3, pleasant and cooperative though tearful at times regarding her situation. States I came here because I need medications that will actually help me. For the last week I've been having a hard time coping, so I've been smoking a lot of marijuana but i need to get actual help. That's why I'm here, I want to be here . Patient denies SI/HI/AVH but endorses anxiety and depression which she rates both 9/10. She began perseverating on PRN Ativan this afternoon Since I was using marijuana for my anxiety before coming here, I really feel like getting Ativan for at least a couple days will help. I'm not an addict seeking out drugs but if I don't get what I need to help me get through this, then I'll just leave . Patient was given PRN hydroxyzine and clonidine at that time with good effect. She reports appetite is okay but sleep has been poor I have trouble falling asleep and once I do, I just keep waking up . Patients tox screen positive for Amphetamines and marijuana, skin check completed with no significant findings. Patient states her goal is To have a better quality of life and receive the proper medications . Patient has been placed on 15 minute checks for safety.
[2024-08-17] MEDS: chlorproMAZINE HCl 25 MG TABLET 50 MG PO (20:55)
[2024-08-18 07:05] VITALS: BP 121/58; PULSE 55; RESP 16; TEMP 36.9; O2SAT 98
[2024-08-18] MEDS: hydrOXYzine HCL 25 MG TABLET PO (07:09)
[2024-08-18 08:29] LABS: Estimated Average Glucose 100 mg/dL; Hemoglobin A1C 126.9865 umol/L; Hemoglobin A1c % 5.1 % (<6.0); Total Hemoglobin (HGBA1C) 3880.4976 umol/L
[2024-08-18 08:35] LABS: Cholesterol 198 mg/dL (<200); HDL Cholesterol 33 mg/dL (>40); LDL Cholesterol Calculated 143 mg/dL (<100); Triglycerides 110 mg/dL (<150)
[2024-08-18] MEDS: Lithium Carbonate ER 300 MG TABLET.ER PO ×2 (08:39→20:29)
[2024-08-18 08:50] VITALS: BP 121/58
[2024-08-18] MEDS: cloNIDine HCL 0.1 MG TABLET PO (08:50)
[2024-08-18] MEDS: Nicotine Polacrilex Lozenge 4 MG LOZENGE BUCCAL (10:59)
[2024-08-18] MEDS: chlorproMAZINE HCl 25 MG TABLET PO (12:09)
[2024-08-18] MEDS: diazePAM 5 MG TABLET 10 MG PO (12:09)
--- NOTE | 2024-08-18 17:35 | HO.PSYCHPN ---
Subjective Subjective Date of Service: 08/18/24 Reason For Visit: Crisis Interim History: taking meds, feeling better. doesn't trust the government. prozac and clonidine have been inadequate in the past. c/o parasitic infection that nobody is taking seriously. per staff, anx/dep 01/16. PRN hydroxyzine. poor sleep. slept 8 hours, however? declined PRN trazodone. Mental Status Exam Mental Status Exam Patient Appearance: Appropriate Patient Orientation: Person, Place, Time and Situation Level of Consciousness: Awake and Alert Patient Behavior: Cooperative, Anxious, Good Eye Contact and Crying Mood Description: Depressed and Anxious Affect Description: Labile Ability to Follow Directions: Good Speech Pattern: Clear and Rapid Hallucinations: Visual Delusions: Paranoid Ideation Thought Process: Racing Thought Content: positive for Racing Diagnostics Vital Signs (24Hr): Vital Signs - 24 hr 08/17/24 20:20 08/17/24 20:54 08/18/24 07:05 Temperature 97.8 F 98.4 F Pulse Rate 50 55 Respiratory Rate 18 16 Blood Pressure 100/54 L 100/54 L 121/58 L Pulse Oximetry 97 98 Oxygen Delivery Method Room Air Room Air 08/18/24 08:50 Temperature Pulse Rate Respiratory Rate Blood Pressure 121/58 L Pulse Oximetry Oxygen Delivery Method BMI result Body Mass Index 31.3 Labs 08/16/24 15:18 08/17/24 12:24 Labs: Laboratory Results - last 48 hr 08/17/24 08/18/24 12:24 07:47 Sodium 141 Potassium 4.0 Chloride 111 H Carbon Dioxide 23 Anion Gap 11 L BUN 13 Creatinine 0.67 Estim Creat Clear Calc 109.9 Estimated GFR > 60 Random Glucose 96 Estimat Average Glucose 100 Hemoglobin A1c % 5.1 Calcium 9.3 Total Bilirubin 0.8 AST 20 ALT 12 Alkaline Phosphatase 59 Total Protein 6.6 Albumin 4.4 Triglycerides 110 Cholesterol 198 LDL Cholesterol, Calc 143 H HDL Cholesterol 33 L Medications Medications Current Medications Acetaminophen (Acetaminophen 325 Mg Tablet) 650 mg PO Q6H PRN PRN Reason: Headache/Pain, Scale 1-10 Al Hydroxide/Mg Hydroxide (Magnesium Hydrox/Alum Hydrox 30 Ml Oral.Susp) 30 ml PO Q6H PRN PRN Reason: Heartburn/Nausea Chlorpromazine HCl (Chlorpromazine Hcl 100 Mg Tablet) 100 mg PO BEDTIME DALE Chlorpromazine HCl (Chlorpromazine Hcl 25 Mg Tablet) 25 mg PO Q4H PRN PRN Reason: agitation Last Admin: 08/18/24 12:09 Dose: 25 mg Clonidine HCl (Clonidine Hcl 0.1 Mg Tablet) 0.1 mg PO TID PRN; Protocol PRN Reason: anxiety Last Admin: 08/18/24 08:50 Dose: 0.1 mg Hydroxyzine HCl (Hydroxyzine Hcl 25 Mg Tablet) 25 mg PO Q6H PRN PRN Reason: mild anxiety Last Admin: 08/18/24 07:09 Dose: 25 mg [place] Carbonate ([place] Carbonate Er 300 Mg Tablet.Er) 300 mg PO BID DALE Last Admin: 08/18/24 08:39 Dose: 300 mg Magnesium Hydroxide (Milk Of Magnesia 30 Ml Oral.Susp) 30 ml PO DAILY PRN PRN Reason: Constipation Nicotine (Nicotine 21 Mg Patch.Td24) 21 mg TRANSDERMA DAILY PRN PRN Reason: Nicotine Cravings Nicotine Polacrilex (Nicotine Polacrilex Lozenge 4 Mg Lozenge) 4 mg BUCCAL Q1H PRN PRN Reason: Nicotine Cravings Last Admin: 08/18/24 10:59 Dose: 4 mg Trazodone HCl (Trazodone Hcl 50 Mg Tablet) 50 mg PO BEDTIME MRX1 PRN PRN Reason: Insomnia Allergies Allergies Allergy/AdvReac Type Severity Reaction Status Date / Time metoclopramide [From Reglan] AdvReac Agitated Verified 08/16/24 13:37 prednisone AdvReac Agitated Verified 02/04/24 09:54 Assessment & Plan Assessment & Plan (1) Psychosis: Status: Acute Code(s): F29 - Unspecified psychosis not due to a substance or known physiological condition (2) PTSD (post-traumatic stress disorder): Status: Acute Code(s): F43.10 - Post-traumatic stress disorder, unspecified (3) Stimulant use disorder: Status: Acute Code(s): F15.90 - Other stimulant use, unspecified, uncomplicated (4) TBI (traumatic brain injury): Status: Acute Code(s): S06.9XAA - Unspecified intracranial injury with loss of consciousness status unknown, initial encounter Plan Patient is a 39-year-old female with history of unspecified psychosis, PTSD,TBI and stimulant use disorder, who was brought in to ER by her [facility] staff due to suicidal ideation with a plan to overdose secondary to paranoia. Plan: CV 15 minute safety checks Obtain collateral Start: [place] 300mg PO BID Thorazine 50mg PO bedtime Thorazine 25mg TID PRN Encourage groups Discharge planning 08/18: thorazine at 100 mg QHS. T/C increasing lithium dosing to 450 BID. otherwise continue current mgmt. Reason for continued inpatient stay Substantial Risk for: inability to function Time Spent With Patient Time: Total time managing care of this patient today ____ minutes.
[2024-08-18 18:50] VITALS: BP 86/52; PULSE 46; RESP 16; TEMP 36.4; O2SAT 98
--- NOTE | 2024-08-18 19:05 | PC.NURSE ---
This medical technical writer reported all VS to Dr Lugo via [employer]. Pulse: 46-60, BP: 86/52, all others wnl. He stated ok .
[2024-08-18] MEDS: chlorproMAZINE HCl 100 MG TABLET PO (20:29)
--- NOTE | 2024-08-19 | ECG_ITS ---
Test Reason : h/o prolonged QTc Blood Pressure : */* mmHG Vent. Rate : 59 BPM Atrial Rate : 59 BPM P-R Int : 136 ms QRS Dur : 74 ms QT Int : 480 ms P-R-T Axes : 33 37 24 degrees QTcB Int : 475 ms Sinus bradycardia Otherwise normal ECG When compared with ECG of 16-Aug-2024 19:25, Nonspecific T wave abnormality has replaced inverted T waves in Anterior leads Referred By: Jono Lugo Electronically Signed By: LAILA REBOLLAR MD
[2024-08-19] MEDS: Acetaminophen 325 MG TABLET 650 MG PO ×2 (06:54→15:27)
[2024-08-19 06:56] VITALS: BP 137/87
[2024-08-19] MEDS: cloNIDine HCL 0.1 MG TABLET PO ×3 (06:56→21:07)
[2024-08-19 07:44] VITALS: BP 131/85; PULSE 70; RESP 16; TEMP 37.1; O2SAT 98
[2024-08-19] MEDS: Lithium Carbonate ER 300 MG TABLET.ER PO (08:36)
[2024-08-19] MEDS: hydrOXYzine HCL 25 MG TABLET PO (10:06)
[2024-08-19] MEDS: Nicotine Polacrilex Lozenge 4 MG LOZENGE BUCCAL (10:08)
[2024-08-19] MEDS: Lithium Carbonate 300 MG TABLET 150 MG PO (11:17)
[2024-08-19] MEDS: chlorproMAZINE HCl 25 MG TABLET PO (11:20)
[2024-08-19 15:27] VITALS: BP 142/84
[2024-08-19 19:17] VITALS: BP 112/60; PULSE 72; RESP 16; TEMP 36.6; O2SAT 100
[2024-08-19 21:07] VITALS: BP 108/75
[2024-08-19] MEDS: chlorproMAZINE HCl 100 MG TABLET PO (21:07)
[2024-08-19] MEDS: Lithium Carbonate ER 450 MG TABLET.ER PO (21:07)
--- NOTE | 2024-08-19 21:09 | P.PNPSI_ITS ---
Subjective Subjective Date of Service: 08/19/24 Reason For Visit: Crisis Interim History: intense and hyperverbal, but somehow coming across as pleasant. agreeable to increase lithium to 450 BID for mood stability. per staff, very labile, agitated yesterday. eating well. paranoid, irritable. Mental Status Exam Mental Status Exam Patient Appearance: Appropriate Patient Orientation: Person, Place, Time and Situation Level of Consciousness: Awake and Alert Patient Behavior: Cooperative, Anxious, Good Eye Contact and Crying Mood Description: Depressed and Anxious Affect Description: Labile Ability to Follow Directions: Good Speech Pattern: Clear and Rapid Hallucinations: Visual Delusions: Paranoid Ideation Thought Process: Racing Thought Content: positive for Racing Diagnostics Vital Signs (24Hr): Vital Signs - 24 hr 08/19/24 06:56 08/19/24 07:44 08/19/24 15:27 Temperature 98.7 F Pulse Rate 70 Respiratory Rate 16 Blood Pressure 137/87 131/85 142/84 H Pulse Oximetry 98 Oxygen Delivery Method Room Air 08/19/24 19:17 Temperature 98 F Pulse Rate 72 Respiratory Rate 16 Blood Pressure 112/60 Pulse Oximetry 100 Oxygen Delivery Method Room Air BMI result Body Mass Index 31.3 Labs 08/16/24 15:18 08/17/24 12:24 Labs: Laboratory Results - last 48 hr 08/18/24 07:47 Estimat Average Glucose 100 Hemoglobin A1c % 5.1 Triglycerides 110 Cholesterol 198 LDL Cholesterol, Calc 143 H HDL Cholesterol 33 L Medications Medications Current Medications Acetaminophen (Acetaminophen 325 Mg Tablet) 650 mg PO Q6H PRN PRN Reason: Headache/Pain, Scale 1-10 Last Admin: 08/19/24 15:27 Dose: 650 mg Al Hydroxide/Mg Hydroxide (Magnesium Hydrox/Alum Hydrox 30 Ml Oral.Susp) 30 ml PO Q6H PRN PRN Reason: Heartburn/Nausea Chlorpromazine HCl (Chlorpromazine Hcl 100 Mg Tablet) 100 mg PO BEDTIME DALE Last Admin: 08/18/24 20:29 Dose: 100 mg Chlorpromazine HCl (Chlorpromazine Hcl 25 Mg Tablet) 25 mg PO Q4H PRN PRN Reason: agitation Last Admin: 08/19/24 11:20 Dose: 25 mg Clonidine HCl (Clonidine Hcl 0.1 Mg Tablet) 0.1 mg PO TID PRN; Protocol PRN Reason: anxiety Last Admin: 08/19/24 15:27 Dose: 0.1 mg Hydroxyzine HCl (Hydroxyzine Hcl 25 Mg Tablet) 25 mg PO Q6H PRN PRN Reason: mild anxiety Last Admin: 08/19/24 10:06 Dose: 25 mg [place] Carbonate ([place] Carbonate Er 450 Mg Tablet.Er) 450 mg PO BID DALE Magnesium Hydroxide (Milk Of Magnesia 30 Ml Oral.Susp) 30 ml PO DAILY PRN PRN Reason: Constipation Nicotine (Nicotine 21 Mg Patch.Td24) 21 mg TRANSDERMA DAILY PRN PRN Reason: Nicotine Cravings Nicotine Polacrilex (Nicotine Polacrilex Lozenge 4 Mg Lozenge) 4 mg BUCCAL Q1H PRN PRN Reason: Nicotine Cravings Last Admin: 08/19/24 10:08 Dose: 4 mg Trazodone HCl (Trazodone Hcl 50 Mg Tablet) 50 mg PO BEDTIME MRX1 PRN PRN Reason: Insomnia Allergies Allergies Allergy/AdvReac Type Severity Reaction Status Date / Time metoclopramide [From Reglan] AdvReac Agitated Verified 08/16/24 13:37 prednisone AdvReac Agitated Verified 02/04/24 09:54 Assessment & Plan Assessment & Plan (1) Psychosis: Status: Acute Code(s): F29 - Unspecified psychosis not due to a substance or known physiological condition (2) PTSD (post-traumatic stress disorder): Status: Acute Code(s): F43.10 - Post-traumatic stress disorder, unspecified (3) Stimulant use disorder: Status: Acute Code(s): F15.90 - Other stimulant use, unspecified, uncomplicated (4) TBI (traumatic brain injury): Status: Acute Code(s): S06.9XAA - Unspecified intracranial injury with loss of consciousness status unknown, initial encounter Plan Patient is a 39-year-old female with history of unspecified psychosis, PTSD,TBI and stimulant use disorder, who was brought in to ER by her [facility] staff due to suicidal ideation with a plan to overdose secondary to paranoia. Plan: CV 15 minute safety checks Obtain collateral Start: [place] 300mg PO BID Thorazine 50mg PO bedtime Thorazine 25mg TID PRN Encourage groups Discharge planning 08/18: thorazine at 100 mg QHS. T/C increasing lithium dosing to 450 BID. otherwise continue current mgmt. 08/19: lithium increased to 450 BID. less labile than yesterday. continue current mgmt. Reason for continued inpatient stay Substantial Risk for: inability to function and rapid decompensation Time Spent With Patient Time: Total time managing care of this patient today ____ minutes.
[2024-08-20 08:00] VITALS: BP 115/74; PULSE 64; RESP 14; TEMP 36.5; O2SAT 100
[2024-08-20] MEDS: cloNIDine HCL 0.1 MG TABLET PO ×2 (08:34→15:17)
[2024-08-20] MEDS: Nicotine Polacrilex Lozenge 4 MG LOZENGE BUCCAL ×2 (08:34→15:18)
[2024-08-20] MEDS: Lithium Carbonate ER 450 MG TABLET.ER PO ×2 (08:34→20:38)
--- NOTE | 2024-08-20 09:47 | HO.PSYCHPN ---
Subjective Subjective Date of Service: 08/20/24 Reason For Visit: Crisis Subjective Notes: 3 Day Interim History: Active on unit, social with peers. attending groups. 3 day up 08/22/24. Patient reports she's upset with herself for getting mad for being in the hospital . Pt stated, I'm not worried about the parasites anymore. I have an appointment with a retread operator so I'll wait for that. I realized that I need a stronger support group outside of here when I'm not feeling well . denies SI/HI/VH/AH. per nursing, slept 10 hours. Plan to discharge on 3 day if continues to improve; pt aware. Medication Compliance: Yes Side effects from medications: No Attending Groups: Yes Mental Status Exam Mental Status Exam Narrative: Pt is alert and oriented; behavior is cooperative and calm; dressed in casual attire; mood is described as better ; eye contact appropriate; Speech is normal rate, volume and not pressured; thought process is organized; Thought content is on discharge; denies SI/HI/VH/AH. Diagnostics Vital Signs (24Hr): Vital Signs - 24 hr 08/19/24 15:27 08/19/24 19:17 08/19/24 21:07 Temperature 98 F Pulse Rate 72 Respiratory Rate 16 Blood Pressure 142/84 H 112/60 108/75 Pulse Oximetry 100 Oxygen Delivery Method Room Air 08/20/24 08:00 Temperature 97.7 F Pulse Rate 64 Respiratory Rate 14 Blood Pressure 115/74 Pulse Oximetry 100 Oxygen Delivery Method Room Air BMI result Body Mass Index 31.3 Labs 08/16/24 15:18 08/17/24 12:24 Medications Medications Current Medications Acetaminophen (Acetaminophen 325 Mg Tablet) 650 mg PO Q6H PRN PRN Reason: Headache/Pain, Scale 1-10 Last Admin: 08/19/24 15:27 Dose: 650 mg Al Hydroxide/Mg Hydroxide (Magnesium Hydrox/Alum Hydrox 30 Ml Oral.Susp) 30 ml PO Q6H PRN PRN Reason: Heartburn/Nausea Chlorpromazine HCl (Chlorpromazine Hcl 100 Mg Tablet) 100 mg PO BEDTIME DALE Last Admin: 08/19/24 21:07 Dose: 100 mg Chlorpromazine HCl (Chlorpromazine Hcl 25 Mg Tablet) 25 mg PO Q4H PRN PRN Reason: agitation Last Admin: 08/19/24 11:20 Dose: 25 mg Clonidine HCl (Clonidine Hcl 0.1 Mg Tablet) 0.1 mg PO TID PRN; Protocol PRN Reason: anxiety Last Admin: 08/20/24 08:34 Dose: 0.1 mg Hydroxyzine HCl (Hydroxyzine Hcl 25 Mg Tablet) 25 mg PO Q6H PRN PRN Reason: mild anxiety Last Admin: 08/19/24 10:06 Dose: 25 mg [place] Carbonate ([place] Carbonate Er 450 Mg Tablet.Er) 450 mg PO BID DALE Last Admin: 08/20/24 08:34 Dose: 450 mg Magnesium Hydroxide (Milk Of Magnesia 30 Ml Oral.Susp) 30 ml PO DAILY PRN PRN Reason: Constipation Nicotine (Nicotine 21 Mg Patch.Td24) 21 mg TRANSDERMA DAILY PRN PRN Reason: Nicotine Cravings Nicotine Polacrilex (Nicotine Polacrilex Lozenge 4 Mg Lozenge) 4 mg BUCCAL Q1H PRN PRN Reason: Nicotine Cravings Last Admin: 08/20/24 08:34 Dose: 4 mg Trazodone HCl (Trazodone Hcl 50 Mg Tablet) 50 mg PO BEDTIME MRX1 PRN PRN Reason: Insomnia Allergies Allergies Allergy/AdvReac Type Severity Reaction Status Date / Time metoclopramide [From Reglan] AdvReac Agitated Verified 08/16/24 13:37 prednisone AdvReac Agitated Verified 02/04/24 09:54 Assessment & Plan Assessment & Plan (1) Psychosis: Status: Acute Code(s): F29 - Unspecified psychosis not due to a substance or known physiological condition (2) PTSD (post-traumatic stress disorder): Status: Acute Code(s): F43.10 - Post-traumatic stress disorder, unspecified (3) Stimulant use disorder: Status: Acute Code(s): F15.90 - Other stimulant use, unspecified, uncomplicated (4) TBI (traumatic brain injury): Status: Acute Code(s): S06.9XAA - Unspecified intracranial injury with loss of consciousness status unknown, initial encounter Plan Patient is a 39-year-old female with history of unspecified psychosis, PTSD,TBI and stimulant use disorder, who was brought in to ER by her [facility] staff due to suicidal ideation with a plan to overdose secondary to paranoia. Plan: CV 15 minute safety checks Obtain collateral Start: [place] 300mg PO BID Thorazine 50mg PO bedtime Thorazine 25mg TID PRN Encourage groups Discharge planning 08/18: thorazine at 100 mg QHS. T/C increasing lithium dosing to 450 BID. otherwise continue current mgmt. 08/19: lithium increased to 450 BID. less labile than yesterday. continue current mgmt. 08/20: Active on unit, social with peers. attending groups. 3 day up 08/22/24. Patient reports she's upset with herself for getting mad for being in the hospital . Pt stated, I'm not worried about the parasites anymore. I have an appointment with a retread operator so I'll wait for that. I realized that I need a stronger support group outside of here when I'm not feeling well . denies SI/HI/VH/AH. per nursing, slept 10 hours. Plan to discharge on 3 day if continues to improve; pt aware. Patient educated on: diagnosis and medication risk/benefits Reason for continued inpatient stay Substantial Risk for: med/psych decompensation Time Spent With Patient Time: Total time managing care of this patient today _20___ minutes.
[2024-08-20 15:17] VITALS: BP 122/81
[2024-08-20] MEDS: Acetaminophen 325 MG TABLET 650 MG PO (15:17)
[2024-08-20] MEDS: Milk of Magnesia 30 ML ORAL.SUSP PO (18:35)
[2024-08-20 20:00] VITALS: BP 107/69; PULSE 58; RESP 16; TEMP 37.4; O2SAT 99
[2024-08-20] MEDS: chlorproMAZINE HCl 100 MG TABLET PO (20:38)
[2024-08-21 07:38] VITALS: BP 121/71; PULSE 72; RESP 16; TEMP 36.3; O2SAT 100
--- NOTE | 2024-08-21 08:35 | P.PNPSI_ITS ---
Subjective Subjective Date of Service: 08/21/24 Reason For Visit: Crisis Subjective Notes: 3 Day Interim History: Active on unit, social with peers. attending groups. 3 day up 08/22/24. Patient reports feeling good today; pt stated, I'm feeling better and not focused on conspiracy theories. I plan on working with my therapist through my trauma . denies SI/HI/VH/AH. Medication Compliance: Yes Side effects from medications: No Attending Groups: Yes Mental Status Exam Mental Status Exam Narrative: Pt is alert and oriented; behavior is cooperative and calm; dressed in casual attire; mood is described as good ; eye contact appropriate; Speech is normal rate, volume and not pressured; thought process is organized; Thought content is on discharge; denies SI/HI/VH/AH. Diagnostics Vital Signs (24Hr): Vital Signs - 24 hr 08/20/24 15:17 08/20/24 20:00 08/21/24 07:38 Temperature 99.3 F 97.4 F Pulse Rate 58 72 Respiratory Rate 16 16 Blood Pressure 122/81 107/69 121/71 Pulse Oximetry 99 100 Oxygen Delivery Method Room Air Room Air BMI result Body Mass Index 31.3 Labs 08/16/24 15:18 08/17/24 12:24 Medications Medications Current Medications Acetaminophen (Acetaminophen 325 Mg Tablet) 650 mg PO Q6H PRN PRN Reason: Headache/Pain, Scale 1-10 Last Admin: 08/20/24 15:17 Dose: 650 mg Al Hydroxide/Mg Hydroxide (Magnesium Hydrox/Alum Hydrox 30 Ml Oral.Susp) 30 ml PO Q6H PRN PRN Reason: Heartburn/Nausea Chlorpromazine HCl (Chlorpromazine Hcl 100 Mg Tablet) 100 mg PO BEDTIME DALE Last Admin: 08/20/24 20:38 Dose: 100 mg Chlorpromazine HCl (Chlorpromazine Hcl 25 Mg Tablet) 25 mg PO Q4H PRN PRN Reason: agitation Last Admin: 08/19/24 11:20 Dose: 25 mg Clonidine HCl (Clonidine Hcl 0.1 Mg Tablet) 0.1 mg PO TID PRN; Protocol PRN Reason: anxiety Last Admin: 08/20/24 15:17 Dose: 0.1 mg Hydroxyzine HCl (Hydroxyzine Hcl 25 Mg Tablet) 25 mg PO Q6H PRN PRN Reason: mild anxiety Last Admin: 08/19/24 10:06 Dose: 25 mg [place] Carbonate ([place] Carbonate Er 450 Mg Tablet.Er) 450 mg PO BID DALE Last Admin: 08/20/24 20:38 Dose: 450 mg Magnesium Hydroxide (Milk Of Magnesia 30 Ml Oral.Susp) 30 ml PO DAILY PRN PRN Reason: Constipation Last Admin: 08/20/24 18:35 Dose: 30 ml Nicotine (Nicotine 21 Mg Patch.Td24) 21 mg TRANSDERMA DAILY PRN PRN Reason: Nicotine Cravings Nicotine Polacrilex (Nicotine Polacrilex Lozenge 4 Mg Lozenge) 4 mg BUCCAL Q1H PRN PRN Reason: Nicotine Cravings Last Admin: 08/20/24 15:18 Dose: 4 mg Trazodone HCl (Trazodone Hcl 50 Mg Tablet) 50 mg PO BEDTIME MRX1 PRN PRN Reason: Insomnia Allergies Allergies Allergy/AdvReac Type Severity Reaction Status Date / Time metoclopramide [From Reglan] AdvReac Agitated Verified 08/16/24 13:37 prednisone AdvReac Agitated Verified 02/04/24 09:54 Assessment & Plan Assessment & Plan (1) Bipolar 2 disorder: Status: Acute Code(s): F31.81 - Bipolar II disorder (2) PTSD (post-traumatic stress disorder): Status: Acute Code(s): F43.10 - Post-traumatic stress disorder, unspecified (3) Stimulant use disorder: Status: Acute Code(s): F15.90 - Other stimulant use, unspecified, uncomplicated (4) TBI (traumatic brain injury): Status: Acute Code(s): S06.9XAA - Unspecified intracranial injury with loss of consciousness status unknown, initial encounter Plan Patient is a 39-year-old female with history of unspecified psychosis, PTSD,TBI and stimulant use disorder, who was brought in to ER by her [facility] staff due to suicidal ideation with a plan to overdose secondary to paranoia. Plan: CV 15 minute safety checks Obtain collateral Start: [place] 300mg PO BID Thorazine 50mg PO bedtime Thorazine 25mg TID PRN Encourage groups Discharge planning 08/18: thorazine at 100 mg QHS. T/C increasing lithium dosing to 450 BID. otherwise continue current mgmt. 08/19: lithium increased to 450 BID. less labile than yesterday. continue current mgmt. 08/20: Active on unit, social with peers. attending groups. 3 day up 08/22/24. Patient reports she's upset with herself for getting mad for being in the hospital . Pt stated, I'm not worried about the parasites anymore. I have an appointment with a account administrator so I'll wait for that. I realized that I need a stronger support group outside of here when I'm not feeling well . denies SI/HI/VH/AH. per nursing, slept 10 hours. Plan to discharge on 3 day if continues to improve; pt aware. 08/21: Active on unit, social with peers. attending groups. 3 day up 08/22/24. Patient reports feeling good today; pt stated, I'm feeling better and not focused on conspiracy theories. I plan on working with my therapist through my trauma . denies SI/HI/VH/AH. Patient educated on: diagnosis and medication risk/benefits Reason for continued inpatient stay Substantial Risk for: stable for discharge Time Spent With Patient Time: Total time managing care of this patient today _20___ minutes.
[2024-08-21] MEDS: Lithium Carbonate ER 450 MG TABLET.ER PO ×2 (09:17→21:15)
[2024-08-21] MEDS: Nicotine Polacrilex Lozenge 4 MG LOZENGE BUCCAL ×2 (09:17→14:11)
[2024-08-21] MEDS: hydrOXYzine HCL 25 MG TABLET PO (09:17)
[2024-08-21 14:11] VITALS: BP 128/79
[2024-08-21] MEDS: cloNIDine HCL 0.1 MG TABLET PO (14:11)
[2024-08-21] MEDS: Milk of Magnesia 30 ML ORAL.SUSP PO (14:11)
[2024-08-21 20:00] VITALS: BP 106/55; PULSE 56; RESP 16; TEMP 36.6; O2SAT 100
[2024-08-21] MEDS: chlorproMAZINE HCl 100 MG TABLET PO (21:15)
[2024-08-21 21:37] LABS: Lithium 0.68 mmol/L (0.60-1.20)
[2024-08-21 21:49] LABS: Anion Gap 12 (12-20); Blood Urea Nitrogen 22 mg/dL (9-16); Carbon Dioxide 27 mmol/L (22-29); Chloride 106 mmol/L (96-108); Creatinine Clr Calc Pharmacy 80.9; Estimated Glomerular Filt Rate > 60; Potassium 4.5 mmol/L (3.3-5.1); Sodium 140 mmol/L (135-145)
[2024-08-21 22:05] LABS: TSH reflex Free T4 2.95 uIU/mL (0.32-4.0)
[2024-08-22 07:47] VITALS: BP 118/65; PULSE 56; RESP 16; TEMP 37; O2SAT 99
[2024-08-22] MEDS: Lithium Carbonate ER 450 MG TABLET.ER PO (08:20)
--- NOTE | 2024-08-22 08:28 | PM.PSYDC ---
DS: Providers Provider Date of Service: 08/22/24 Date of admission: 08/17/24 10:04 Date of discharge: 08/22/24 Primary care physician: Lisha Physician Admitting clinician: Chayo Arriaga Attending physician on admission: Andreas Colby Attending physician on discharge: Andreas Colby Discharging clinician: Chayo Arriaga DS: Diagnosis Discharge Diagnosis (1) Bipolar 2 disorder: Status: Acute (2) PTSD (post-traumatic stress disorder): Status: Acute (3) Stimulant use disorder: Status: Acute (4) TBI (traumatic brain injury): Status: Acute DS: Medications Discharge Medications Home Medications: Home Medications ?Medication ?Instructions ?Recorded ?Confirmed clonidine HCl 0.1 mg tablet 0.1 mg PO TID PRN anxiety 08/16/24 08/16/24 Previous Rx's ?Medication ?Instructions ?Recorded chlorpromazine 100 mg tablet 100 mg PO BEDTIME 30 days #30 tabs 08/21/24 lithium carbonate 450 mg 450 mg PO BID 7 days #14 tabs 08/21/24 tablet,extended release Mental Status Exam Mental Status Exam Narrative: Pt is alert and oriented; behavior is cooperative and calm; dressed in casual attire; mood is described as good ; eye contact appropriate; Speech is normal rate, volume and not pressured; thought process is organized; Thought content is on discharge; denies SI/HI/VH/AH. Data Data Completed and Pending Completed studies during hospitalization [Text1]: 08/16/24 08/16/24 08/17/24 14:05 15:18 12:24 WBC 8.9 RBC 3.93 L Hgb 12.7 Hct 36.6 L MCV 93.1 MCH 32.3 MCHC 34.7 RDW 12.3 Plt Count 309 MPV 9.9 Immature Gran % (Auto) 0.3 Neut % (Auto) 64.9 Lymph % (Auto) 26.7 [place] % (Auto) 4.6 Eos % (Auto) 2.4 Baso % (Auto) 1.1 Lymph # (Auto) 2.4 [place] # (Auto) 0.4 Eos # (Auto) 0.2 Baso # (Auto) 0.1 Abs Immat Gran (auto) 0.03 Absolute Neuts (auto) 5.8 Absolute Nucleated RBC 0.000 Nucleated RBC % (auto) 0.0 Sodium 141 141 Potassium 4.2 4.0 Chloride 111 H 111 H Carbon Dioxide 25 23 Anion Gap 9 L 11 L BUN 13 13 Creatinine 0.65 0.67 Estim Creat Clear Calc 113.3 109.9 Estimated GFR > 60 > 60 Random Glucose 84 96 Estimat Average Glucose Hemoglobin A1c % Calcium 9.3 9.3 Magnesium 1.9 Total Bilirubin 0.4 0.8 Direct Bilirubin 0.2 AST 21 20 ALT 11 12 Alkaline Phosphatase 55 59 Total Protein 6.2 L 6.6 Albumin 4.1 4.4 Triglycerides Cholesterol LDL Cholesterol, Calc HDL Cholesterol TSH Urine Color Dark Yellow Urine Appearance Cloudy Urine pH 5.5 Ur Specific [place] >= 1.030 H Urine Protein Trace Urine Glucose (UA) Negative Urine Ketones Trace Urine Blood Small (1+) H Urine Nitrite Negative Ur Leukocyte Esterase Small (1+) H Urine RBC 0-2 Urine WBC 6-10 Ur Squamous Epith Cells 11-20 Urine Bacteria 3+ Hyaline Casts 0-2 Urine Test NEGATIVE Salicylates < 5.0 L Urine Opiates Screen Not Detected Ur Buprenorphine Scrn Not Detected Ur Oxycodone Screen Not Detected Urine Methadone Screen Not Detected Urine Fentanyl Screen Not Detected Acetaminophen < 3 Ur Barbiturates Screen Not Detected Ur Phencyclidine Scrn Not Detected Ur Amphetamines Screen POSITIVE H U Benzodiazepines Scrn Not Detected [place] Urine Cocaine Screen Not Detected U Marijuana (THC) Screen POSITIVE H Ethyl Alcohol < 10 08/18/24 08/21/24 07:47 21:11 WBC RBC Hgb Hct MCV MCH MCHC RDW Plt Count MPV Immature Gran % (Auto) Neut % (Auto) Lymph % (Auto) [place] % (Auto) Eos % (Auto) Baso % (Auto) Lymph # (Auto) [place] # (Auto) Eos # (Auto) Baso # (Auto) Abs Immat Gran (auto) Absolute Neuts (auto) Absolute Nucleated RBC Nucleated RBC % (auto) Sodium 140 Potassium 4.5 Chloride 106 Carbon Dioxide 27 Anion Gap 12 BUN 22 H Creatinine 0.90 Estim Creat Clear Calc 80.9 Estimated GFR > 60 Random Glucose Estimat Average Glucose 100 Hemoglobin A1c % 5.1 Calcium Magnesium Total Bilirubin Direct Bilirubin AST ALT Alkaline Phosphatase Total Protein Albumin Triglycerides 110 Cholesterol 198 LDL Cholesterol, Calc 143 H HDL Cholesterol 33 L TSH 2.95 Urine Color Urine Appearance Urine pH Ur Specific [place] Urine Protein Urine Glucose (UA) Urine Ketones Urine Blood Urine Nitrite Ur Leukocyte Esterase Urine RBC Urine WBC Ur Squamous Epith Cells Urine Bacteria Hyaline Casts Urine Test Salicylates Urine Opiates Screen Ur Buprenorphine Scrn Ur Oxycodone Screen Urine Methadone Screen Urine Fentanyl Screen Acetaminophen Ur Barbiturates Screen Ur Phencyclidine Scrn Ur Amphetamines Screen U Benzodiazepines Scrn [place] 0.68 Urine Cocaine Screen U Marijuana (THC) Screen Ethyl Alcohol 08/16/24 Unknown Urine clean catch - Clean Catch Midstream Urine Culture - Final No growth. DS: Summary Hospital Course Hospital Course: Patient is a 39-year-old female with history of unspecified psychosis, PTSD, TBI and stimulant use disorder, who was brought in to ER by her [facility] staff due to suicidal ideation with a plan to overdose secondary to paranoia. Per crisis report, patient reported she recently relapsed on Vicodin and Adderall, after being sober for 6 months because she was trying to self medicate. Patient stated, I am a conspiracy theories, the government is poisoning are air which is why I struggle to breathe and I have these parasites. 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 Patient presented tangential, paranoid and disorganized at times during assessment. Patient reported in 2007 she sustained a TBI and afterwards began to have these thoughts of being poisoned and infected with parasites from the government. Patient denies HI/AH. History of methamphetamine use. Utox positive for amphetamines and marijuana. During admission assessment, patient presents alert and oriented x3. cooperative, tearful. Rapid and pressured speech. Paranoid delusions. Patient reports she does not believe she is on the right psychiatric medications. She believes that there are parasites that are coming out of her skin and attacking her organs . Patient stated, I have been in and out of ERs. I know I'm not crazy. I believe I'm being poisoned by the government. It's population control because of my income status. If I don't get treated for it in the next 2 years I will be . Patient reports she has a dermatology appointment in March of this year. She reports history of methamphetamine use but states that she has been sober for 6 months. However, she reports using Adderall and Vicodin prior to coming to the ER. Patient denies SI/HI/AH. She reports wanting assistance with her psychiatric medications. Plan: CV 15 minute safety checks Obtain collateral Start: [place] 300mg PO BID Thorazine 50mg PO bedtime Thorazine 25mg TID PRN Encourage groups Discharge planning thorazine at 100 mg QHS. T/C increasing lithium dosing to 450 BID. otherwise continue current mgmt. lithium increased to 450 BID. less labile than yesterday. continue current mgmt. Active on unit, social with peers. attending groups. 3 day up 08/22/24. Patient reports she's upset with herself for getting mad for being in the hospital . Pt stated, I'm not worried about the parasites anymore. I have an appointment with a aeronautics teacher so I'll wait for that. I realized that I need a stronger support group outside of here when I'm not feeling well . denies SI/HI/VH/AH. per nursing, slept 10 hours. Plan to discharge on 3 day if continues to improve; pt aware. Active on unit, social with peers. attending groups. 3 day up 08/22/24. Patient reports feeling good today; pt stated, I'm feeling better and not focused on conspiracy theories. I plan on working with my therapist through my trauma . denies SI/HI/VH/AH. Patient continues to reports feeling good and ready to leave. [place] level 0.68 on 08/21/24. Patient reports she plans on following up with her outpatient providers. denies SI/HI/VH/AH. Status at Discharge Cognitive/behavioral status at discharge: Patient has insight and demonstrates good judgment in terms of wanting to pursue treatment. Patient has a safety plan that includes presenting to the closest ER or calling 911 if feeling unsafe. Functional status at discharge: independent ambulation Overall status at discharge: patient is back to baseline Time Spent with Patient Time attestation: Total time managing care of this patient today _20___ minutes. Time spent: Less than 30 minutes Discharge Plan Discharge Anticipated Discharge Date/Time: 08/22/24 10:30 Patient Disposition: Home, Self-Care Discharge Diagnosis: Bipolar d/o, PTSD, Stimulant use d/o, TBI Referrals: Yoli Gottlieb (Therapy) [Other] - 08/24/24 11:30 am (IN OFFICE APPOINTMENT) Natacha Vines (Psychiatry) [Other] - 08/27/24 11:40 am (IN OFFICE APPOINTMENT) [facility] [Provider Group] - 1 Week (08-21-24 [facility] was added to patients chart. Please call [phone] to schedule a follow up appt within 7-10 days of discharge.) Discharge Medications: New chlorpromazine 100 mg Tablet 100 mg PO BEDTIME 30 Days Qty: 30 0RF lithium carbonate 450 mg Tablet Extended Release 450 mg PO BID 7 Days Qty: 14 0RF Continued clonidine HCl 0.1 mg tablet 0.1 mg PO TID PRN (Reason: anxiety) Discontinued fluoxetine 20 mg tablet 20 mg PO QAM Discharge Orders: Discharge Order (Routine); Ordered 08/22/24 Ordered By: Chayo Arriaga Diet: Regular diet Activity on Discharge: As tolerated Stand Alone Forms: Patient Portal Discharge page, Community Support Print Language: Occitan Care Plan Goals: Maintain mood and safe behaviors Take medications as prescribed Continue to pursue sobriety Practice coping skills Continue with outpatient providers and reach out to them as needed Health Concerns: Mood stability and behaviors Sobriety Plan of Treatment: Follow up with your PCP, psychiatric provider and other outpatient providers regarding above concerns Take medications as prescribed Assessment: Patient has insight and demonstrates good judgment in terms of wanting to pursue treatment. Patient has a safety plan that includes presenting to the closest ER or calling 911 if feeling unsafe. Discharge Date/Time: 08/22/24 10:00
== END 2024-08-22 10:00 | disposition home or self-care (01) | DRG 753 ==
LOC: HO.ED 08-17 10:54 → HO.PADLT16 08-17 11:27
PROVIDERS: Emergency Medicine; Physician Assistant; Admitting Provider Registered Nurse; Emergency Provider Emergency Medicine; Responsible Provider Registered Nurse; Visit Provider Psychiatry & Neurology Psychiatry
DX: F31.81 Bipolar II disorder (principal); R45.851 Suicidal ideations; F15.90 Other stimulant use, unspecified, uncomplicated; F17.210 Nicotine dependence, cigarettes, uncomplicated; Z71.6 Tobacco abuse counseling; F43.10 Post-traumatic stress disorder, unspecified; Z87.820 Personal history of traumatic brain injury; Z79.899 Other long term (current) drug therapy
CPT/HCPCS: 36415; 80048; 80051; 80053; 80061; 80076; 80143; 80178; 80179; 80307; 81001; 81025; 82565; 83036; 83735; 84443; 84520; 85025; 87086; 93005; 99285; S9485

== ENCOUNTER → 2024-08-16 19:25 | Outpatient (BNV) | payer MEDICAID, SELFPAY | PROVIDERS: Admitting Provider Registered Nurse; Emergency Provider Emergency Medicine; Responsible Provider Registered Nurse; Visit Provider Internal Medicine Cardiovascular Disease | DX: R00.1 Bradycardia, unspecified (principal) | CPT/HCPCS: 93010 ==

== ENCOUNTER 2024-08-17 10:04 | Outpatient (BNV) | payer MEDICAID, SELFPAY | END 2024-08-19 11:28 | PROVIDERS: Admitting Provider Registered Nurse; Emergency Provider Emergency Medicine; Responsible Provider Registered Nurse; Visit Provider Internal Medicine Cardiovascular Disease | DX: R00.1 Bradycardia, unspecified (principal) | CPT/HCPCS: 93010 ==

== ENCOUNTER → 2024-08-17 10:04 | Outpatient (BNV) | payer OTHER, SELFPAY | PROVIDERS: Admitting Provider Registered Nurse; Emergency Provider Emergency Medicine; Responsible Provider Registered Nurse; Visit Provider Registered Nurse | DX: F29 Unspecified psychosis not due to a substance or known physiological condition (principal); F43.11 Post-traumatic stress disorder, acute; F15.90 Other stimulant use, unspecified, uncomplicated; Z87.820 Personal history of traumatic brain injury | CPT/HCPCS: 99232; 99233 ==